=== PATIENT | male | born 1960 | race Caucasian/White ===

== ENCOUNTER 2023-12-06 20:16 | Emergency (ER) | payer OTHER, SELFPAY ==
[2023-12-06 20:22] VITALS: BP 139/111; PULSE 122; TEMP 36.6; O2SAT 100; BMI 25.8
--- NOTE | 2023-12-06 20:42 | CT_ITS ---
The [address] [address] Patient Name: DAVID TRUJILLO MRN: [id number] date: 1960 Sex: M Assigned Patient Location: ER Current Patient Location: ER Accession/Order Number: [id number] Exam Date: 12/06/2023 22:52 Report Date: 12/06/2023 23:21 At the request of: CHARANJIT ARAUJO Procedure: CT abdomen pelvis wo con EXAM: CT abdomen pelvis wo con CLINICAL INDICATION: diarrhea COMPARISON: None. TECHNIQUE: Axial CT of the abdomen, and pelvis was performed from the top of the hemidiaphragms to the inferior osseous pelvis without intravenous contrast. 2-D reformats were obtained. Automatic exposure control radiation dose reduction technology was utilized. FINDINGS: Evaluation is limited by lack of intravenous contrast. Visualized portion of the lung bases are unremarkable. Tiny right hepatic lobe simple cyst. Tiny nonobstructing left renal calculi. No hydronephrosis. The spleen, right kidney, adrenal glands and pancreas are unremarkable. Gallbladder present. No abdominal aortic aneurysm. Small amount of free fluid in the pelvis, likely reactive. No enlarged lymph nodes or free air. Diverticulosis coli without evidence for diverticulitis. Prominent fluid-filled small bowel loops of the abdomen with circumferential rectal wall thickening of right lower quadrant/right hemiabdomen small bowel loops. The bowel is without evidence of obstruction, perforation or abscess. Bladder unremarkable. No suspicious osseous lesions. CT/CT abdomen pelvis wo con IMPRESSION: 1. Findings consistent with enteritis/ileus, likely of infectious/inflammatory etiology. Electronically authenticated by: ESTHER FERREIRA Date: 12/06/2023 23:21
[2023-12-06 21:10] LABS: Adenovirus F 40/41 NOT DETECTED (NOT DETECTE); Astrovirus NOT DETECTED (NOT DETECTE); Campylobacter NOT DETECTED (NOT DETECTE); Cryptosporidium NOT DETECTED (NOT DETECTE); Cyclospora cayetanensis NOT DETECTED (NOT DETECTE); Entamoeba histolytica NOT DETECTED (NOT DETECTE); Enteroaggregative E.coli NOT DETECTED (NOT DETECTE); Enteropathogenic E.coli NOT DETECTED (NOT DETECTE); Enterotoxigenic E. coli NOT DETECTED (NOT DETECTE); Giardia lamblia NOT DETECTED (NOT DETECTE); Norovirus GI/GII NOT DETECTED (NOT DETECTE); Plesiomonas shigelloides NOT DETECTED (NOT DETECTE); Rotavirus A NOT DETECTED (NOT DETECTE); Salmonella NOT DETECTED (NOT DETECTE); Sapovirus NOT DETECTED (NOT DETECTE); Shiga-like toxin-producing E.C NOT DETECTED (NOT DETECTE); Shigella/Enteroinvasive E.coli NOT DETECTED (NOT DETECTE); Vibrio NOT DETECTED (NOT DETECTE); Vibrio cholerae NOT DETECTED (NOT DETECTE); Yersinia enterocolitica NOT DETECTED (NOT DETECTE)
[2023-12-06] MEDS: PROMETHAZINE HCL 12.5 MG in 0.9 % SODIUM CHLORIDE 50 ML 202 MG IV (21:10)
[2023-12-06 21:11] LABS: Hematocrit 51.7 % (42.0-54.0); Hemoglobin 17.9 g/dL (14.0-18.0); Mean Corpuscular HGB Conc 34.6 g/dL (29.9-35.2); Mean Corpuscular Hemoglobin 30.1 pg (25.9-34.0); Mean Corpuscular Volume 86.9 fL (80.0-94.0); Mean Platelet Volume 9.2 fL (9.5-13.5); Platelet Count 436 10^3/uL (150-450); Red Blood Count 5.95 10^6/uL (4.70-6.10); Red Cell Distribution Width 12.7 % (11.0-15.0); White Blood Count 17.4 10^3/uL (4.0-11.0)
[2023-12-06] MEDS: 0.9 % SODIUM CHLORIDE 1,000 ML 999 ML IV (21:11)
[2023-12-06 21:32] LABS: Lactate/Lactic Acid 7.4 mmol/L (0.4-2.0)
[2023-12-06 21:39] LABS: Alanine Aminotransferase 27 U/L (16-63); Albumin Level 4.6 g/dL (3.4-5.0); Alkaline Phosphatase 111 U/L (46-116); Anion Gap 24.5; Aspartate Amino Transferase 23 U/L (15-37); BUN Creatinine Ratio 10.9; Bilirubin Total 1.1 mg/dL (0.2-1.0); Calcium 12.5 mg/dL (8.5-10.1); Carbon Dioxide 20.7 mmol/L (21.0-32.0); Chloride 95 mmol/L (98-107); Estimated GFR (African America 32 (>=60); Estimated GFR (Non-African Ame 27 (>=60); Globulin 4.6 g/dL; Glucose 173 mg/dL (74-106); Potassium 3.2 mmol/L (3.5-5.1); Sodium 137 mmol/L (136-145); Total Protein 9.2 g/dL (6.4-8.2)
[2023-12-06 21:44] LABS: Atypical Lymphocytes Abs Man 1.39; Band Neutrophils Absolute 0.2 10^3/uL (0.0-0.3); Lymphocytes Absolute Manual 2.95 10^3/uL (1.20-3.80); Monocytes Absolute Manual 1.39 10^3/uL (0.30-0.80); Segmented Neut Absolute Manual 11.48 10^3/uL (1.4-6.5)
[2023-12-06 22:20] VITALS: BP 170/100; PULSE 96; O2SAT 93
[2023-12-06 23:21] VITALS: BP 138/76; PULSE 109; O2SAT 98
[2023-12-06] MEDS: 0.9 % SODIUM CHLORIDE 1,000 ML 1000 ML IV (23:43)
[2023-12-07] MEDS: POTASSIUM CHLORIDE IN WATER 10 MEQ/100 ML PIGGYBACK 100 MEQ IV ×4 (00:12→03:14)
[2023-12-07 00:50] LABS: Lactate/Lactic Acid 1.5 mmol/L (0.4-2.0)
--- NOTE | 2023-12-07 01:12 | ED_ITS ---
HPI - Nausea/Vomiting/Diarrhea General Chief complaint: Nausea/Vomiting/Diarrhea Stated complaint: BOWEL PROBLEMS Time Seen by Provider: 12/06/23 20:28 Source: patient Mode of arrival: walk-in History of Present Illness HPI Narrative: presents complaining of sudden onset of diarrhea that started around 2AM [place] AM. Multiple episodes of diarrhea. NON bloody. No nausea or vomiting. Feels light headed and weak. MD elicited complaint: Reports diarrhea Related Data Allergies Allergy/AdvReac Type Severity Reaction Status Date / Time clopidogrel [From Plavix] AdvReac Mild Joint Pain Verified 12/06/23 20:27 Review of Systems ROS Status of ROS 10 or more systems reviewed and unremark able except as noted in history and below Exam Constitutional Vital Signs, click to edit/add: Last Vital Signs Temp 97.8 F 12/06/23 20:22 Pulse 74 12/07/23 04:40 Resp 16 12/07/23 04:40 BP 138/64 12/07/23 04:40 Pulse Ox 100 12/07/23 04:40 O2 Del Method Room Air 12/07/23 03:44 Common normals: no apparent distress, average body habitus, oriented x3, no limitations, healthy appearing, alert and well nourished [facility] Common normals: normocephalic and head/scalp atraumatic Respiratory Common normals: normal respiratory effort, no retractions, no use of accessory muscles and clear to auscultation bilaterally Cardio Common normals: regular rate, regular rhythm, S1 normal heart sound and S2 normal heart sound GI Common normals: Normal to inspection, nondistended, normoactive bowel sounds present, soft to palpation and non-tender Extremity Common normals: normal to inspection and full ROM Neuro Common normals: oriented x3, CN's II-XII intact bilaterally, moves all extremities and no focal motor deficits Psych Appearance: grossly normal Course Vital Signs Vital signs: Vital Signs Temperature 97.8 F 12/06/23 20:22 Pulse Rate 122 H 12/06/23 20:22 Respiratory Rate 20 12/06/23 20:22 Blood Pressure 139/111 H 12/06/23 20:22 Pulse Oximetry 100 12/06/23 20:22 Oxygen Delivery Method Room Air 12/06/23 20:22 Temperature 97.8 F 12/06/23 20:22 Pulse Rate 74 12/07/23 04:40 Respiratory Rate 16 12/07/23 04:40 Blood Pressure 138/64 12/07/23 04:40 Pulse Oximetry 100 12/07/23 04:40 Oxygen Delivery Method Room Air 12/07/23 03:44 MDM - Nausea/Vomiting/Diarrhea MDM Narrative Medical decision making narrative: patient presents with recurrent diarrhea. Started around 2AM and describes multiple episodes of diarrhea. Patient hydrated in the department. Stool results so far neg. WBC and lactic elevated. lactic returned to normal after hydration. Patient feeling better. His low potassium was supplemented in the department. Discharged home in improved condition. Discharged diagnosis enteritis and hypokalemia Lab Data Labs: Lab Results 12/06/23 12/06/23 12/07/23 Range/Units 20:49 20:52 00:27 WBC 17.4 H (4.0-11.0) 10^3/uL RBC 5.95 (4.70-6.10) 10^6/uL Hgb 17.9 (14.0-18.0) g/dL Hct 51.7 (42.0-54.0) % MCV 86.9 (80.0-94.0) fL MCH 30.1 (25.9-34.0) pg MCHC 34.6 (29.9-35.2) g/dL RDW 12.7 (11.0-15.0) % Plt Count 436 (150-450) 10^3/uL MPV 9.2 L (9.5-13.5) fL Seg Neuts % (Manual) 66.0 Band Neutrophils % 1.0 (0-5) % Lymphocytes % (Manual) 17.0 L (20.5-60.0) % Atypical Lymphs % (Man) 8.0 % Monocytes % (Manual) 8.0 (1.7-12.0) % Eosinophils % (Manual) 0.0 L (0.9-7.0) % Basophils % (Manual) 0.0 L (0.2-2.0) % Neutrophils # (Manual) 11.48 H (1.4-6.5) 10^3/uL Band Neutrophils # 0.2 (0.0-0.3) 10^3/uL Lymphocytes # (Manual) 2.95 (1.20-3.80) 10^3/uL Abs Atypical Lymphs Man 1.39 Monocytes # (Manual) 1.39 H (0.30-0.80) 10^3/uL Eosinophils # (Manual) 0.00 (0.00-0.70) 10^3/uL Basophils # (Manual) 0.00 (0.00-0.10) 10^3/uL Sodium 137 (136-145) mmol/L Potassium 3.2 L (3.5-5.1) mmol/L Chloride 95 L (98-107) mmol/L Carbon Dioxide 20.7 L (21.0-32.0) mmol/L Anion Gap 24.5 BUN 27.0 H (7.0-18.0) mg/dL Creatinine 2.47 H (0.70-1.30) mg/dL Est GFR ( Amer) 32 L (>=60) Est GFR (Non-Af Amer) 27 L (>=60) BUN/Creatinine Ratio 10.9 Glucose 173 H (74-106) mg/dL Lactate 7.4 H* 1.5 (0.4-2.0) mmol/L Calcium 12.5 H (8.5-10.1) mg/dL Total Bilirubin 1.1 H (0.2-1.0) mg/dL AST 23 (15-37) U/L ALT 27 (16-63) U/L Alkaline Phosphatase 111 (46-116) U/L Total Protein 9.2 H (6.4-8.2) g/dL Albumin 4.6 (3.4-5.0) g/dL Globulin 4.6 g/dL Albumin/Globulin Ratio 1.0 Stl C. cayetanensis PCR Not detected (NOT DETECTE) Stool Rotavirus (PCR) Not detected (NOT DETECTE) Stool Adenovirus (PCR) Not detected (NOT DETECTE) Stool Astrovirus (PCR) Not detected (NOT DETECTE) Stool Campylobacter PCR Not detected (NOT DETECTE) Stool Cryptosporidium PCR Not detected (NOT DETECTE) St Sh/Enteroin Ecoli PCR Not detected (NOT DETECTE) Stl Enterotoxigenic E PCR Not detected (NOT DETECTE) Stool EPEC (PCR) Not detected (NOT DETECTE) Stl E. histolytica PCR Not detected (NOT DETECTE) Stool Giardia Lamblia PCR Not detected (NOT DETECTE) Stl P. shigelloides PCR Not detected (NOT DETECTE) Stool Salmonella PCR Not detected (NOT DETECTE) Stool Sapovirus (PCR) Not detected (NOT DETECTE) Stl Shiga-like Tx 1 PCR Not detected (NOT DETECTE) St Y.enterocolitica PCR Not detected (NOT DETECTE) Stl Vibrio cholerae PCR Not detected (NOT DETECTE) Stl Enteroaggr Ecoli PCR Not detected (NOT DETECTE) Stl Norovirus GI/GII PCR Not detected (NOT DETECTE) Specimen Source Stool C. difficile Toxin A&B Not detected (NOT DETECTE) Vibrio Culture Not detected (NOT DETECTE) Discharge Plan Discharge Stand Alone Forms: Portal Instructions Chief Complaint: Nausea/Vomiting/Diarrhea Clinical Impression: Enteritis Patient Disposition: Home, Self-Care Print Language: Paraguayan Instructions: Acute Diarrhea (ED), Enteritis (ED) Additional Instructions: follow up with your doctor in the next 2-3 days for recheck Referrals: Physician,Non-Staff, MD [Primary Care Provider] - 1 week Discharge Date/Time: 12/07/23 05:00
[2023-12-07] MEDS: CEFTRIAXONE 1,000 MG in 0.9 % SODIUM CHLORIDE 50 ML 100 MG IV (01:31)
[2023-12-07] MEDS: METRONIDAZOLE/SODIUM CHLORIDE 500 MG/100 ML PREMIX 100 MG IV (02:13)
[2023-12-07] MEDS: DIPHENOXYLATE HCL 2.5 MG/ATROPINE 0.025 MG TABLET 2 TAB PO (03:35)
[2023-12-07] MEDS: 0.9 % SODIUM CHLORIDE 500 ML IV (03:36)
[2023-12-07] MEDS: CALCIUM CARBONATE 500 MG (200MG ELEMENTAL) TAB CHEW PO (03:41)
[2023-12-07 03:44] VITALS: BP 134/68; PULSE 82; O2SAT 16
[2023-12-07 04:40] VITALS: BP 138/64; PULSE 74; O2SAT 100
== END 2023-12-07 05:00 | disposition home or self-care (01) ==
PROVIDERS: Emergency Provider Internal Medicine
DX: K52.9 Noninfective gastroenteritis and colitis, unspecified (principal); E87.6 Hypokalemia
CPT/HCPCS: 36415; 74176; 80053; 83605; 85007; 85027; 87507; 96361; 96365; 96366; 96368; 96375; 99284